=== PATIENT | male | born 1950 | race Caucasian/White ===

== ENCOUNTER 2025-01-17 08:17 | Outpatient (RCR) | payer MEDICARE, SELFPAY ==
--- NOTE | 2025-01-26 15:20 | CTCCONSULT_ITS ---
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 Patient on EGD was found to have about 5 cm tumor in the stomach. Biopsy confirmed gastrointestinal stromal tumor. Patient have already appointment with Dr. Romero for resection. Patient is scheduled to see him patient is asymptomatic CT scan 01/10/2025 OTHER MEDICAL HISTORY/CONDITIONS: HYPERTENSION GI STROMAL TUMOR DIABETES MELLITUS TESTOSTERONE DEFICIENCY DIABETIC POLYNEUROPATHY HYPERLIPIDEMIA BPH THROMBOCYTOPENIA EGD 09/12/24 LEFT EYE SURGERY 01/16 APPENDECOMTY 1956 TONSILLECTOMY AGE 14 SPINAL SURGERY 2000 FAMILY HISTORY: Father:?DENIES Mother: MOTHER COLON CANCER , UNCLE COLON CANCER Sibling:?SISTER?LEUKEMIA Children:?DENIES Cancer History:?STROMAL TUMOR DX 08/2024 SOCIAL HISTORY: Occupational?History:?RETIRED Education?Level:?Completed High School Marital?Status:? Tobacco?Use:?DENIES ETOH?Use:?DENIES Drug?Note:?DENIES Social History Note:?LIVES WITH DAUGHTER AND HER FAMILY MEDICATIONS: 1. amitriptyline - 10 mg 1 tab In the evening 2. Diphenoxylate w/Atropine - 2.5-0.025 mg 1 tab Twice a Day 3. Gemtesa - 75 mg 1 tab Daily 4. Gleevec - 400 mg 1 tab Daily 5. Jardiance - 25 mg 1 tab Daily 6. losartan-hydrochlorothiazide - 50-12.5 mg 1 tab Daily 7. metFORMIN - 1,000 mg 1 tab Daily 8. multivitamin - 1 Capsule Daily 9. simvastatin - 10 mg 1 tab Daily Medications Last Reconciled by Domonique Laureano RN on 01/17/2025 ALLERGIES: Penicillin V; KETOROLAC TROMETHAMINE; Adhesive REVIEW OF SYSTEMS: A complete 14-point review of systems was performed and is negative except as noted in interval history. PHYSICAL EXAMINATION: VITAL SIGNS: Temperature?98.1, B/P?116/73, Height?69?inches, Oxygen?Saturation?97% Weight?175?lbs PAIN: 0 - No pain ECOG Performance Status: 0 - Asymptomatic and fully active GENERAL APPEARANCE: Appears well, in no apparent distress, appropriately interactive. HEENT: Normocephalic, no temporal wasting, normal conjunctiva, no scleral icterus, normal hearing, lips without lesions, neck normal range of motion. CARDIOVASCULAR: Not assessed. PULMONARY: Normal respiratory effort, no respiratory distress or use of accessory muscles, speaking in full sentences, no tachypnea. EXTREMITIES: No pedal edema or cyanosis. SKIN: Normal skin appearance. NEUROLOGIC: Alert and oriented x4. PSHYCHIATRIC: Appropriate affect, mood normal, behavior normal, intact thought and speech. LABORATORY DATA: I have personally reviewed and interpreted each of the patient?s relevant lab tests, abnormal findings are below: Date ASSESSMENT/PLAN: GIST START ON GLEEVAC Patient have multiple lesions Hepatitis panel RETURN TO CLINIC: 4 weeks BILLING AND COMPLIANCE: I reviewed external records from providers outside my specialty as summarized above. I spent a total of 50 minutes on this patient?s care on the day of their visit excluding time spent related to any billed procedures. This time includes time spent with the patient as well as time spent documenting in the medical record, reviewing patients records and tests, obtaining history, placing orders, communicating with other healthcare professionals, counseling the patient, family or caregiver, and/or care coordination for the diagnoses above. Electronically Signed by: Zane Hawkins MD T: 3:17 PM CC: PCP: Daniel Cabrera Referring: Daniel Cabrera This document was completed utilizing speech recognition software. Grammatical errors, random word insertions, pronoun errors, and incomplete sentences are an occasional consequence of this system due to software limitations, ambient noise, and hardware issues. Any formal questions or concerns about the content, text or information contained within the body of this dictation should be directly addressed to the provider for clarification.
== END 2025-01-23 23:59 | disposition home or self-care (01) ==
LOC: SCTC 08:17
PROVIDERS: PCP Student in an Organized Health Care Education/Training Program; Referring Provider Student in an Organized Health Care Education/Training Program; Visit Provider Internal Medicine Hematology & Oncology
DX: C49.A2 Gastrointestinal stromal tumor of stomach (principal)
CPT/HCPCS: 99213; G0463

== ENCOUNTER 2025-03-02 10:43 | Outpatient (RCR) | payer MEDICARE, SELFPAY ==
--- NOTE | 2025-03-05 21:53 | CTCFLWUP_ITS ---
Patient: ABELARDO MALONE : 1950 Page 4 of 6 FOLLOW UP NOTE DATE OF SERVICE: 03/02/2025 NAME: ABELARDO MALONE ACCOUNT: [id number] : 1950 AGE: 74 INTERVAL HISTORY: Subjective: Chief Complaint Follow-up for GIST tumor, evaluation of liver and pancreatic lesions, monitoring Gleevec treatment History of Present Illness Mr. Abelardo Malone presents for follow-up of his GIST tumor, a 5 cm tumor in the stomach, with recently discovered lesions in the liver and pancreas. He has been taking Gleevec for 30 days as prescribed. The patient reports tolerating the medication well, with no significant side effects such as bleeding. However, he does mention that he bruises easily, which he attributes to the medication. There have been no other concerning symptoms reported. Mr. Malone is scheduled for an MRI scan on the of this month, as ordered by Dr. Shane. This scan was initially intended to be done before starting treatment but was delayed. The patient understands that it may be too early to see significant improvements from the Gleevec treatment at this stage. The patient's treatment plan includes continuing Gleevec and monitoring for any changes or side effects. He has been advised to report any unusual symptoms promptly. The goal of treatment is to potentially shrink the liver lesions and eventually consider removal of the stomach tumor if the liver lesions resolve. Medical History - GIST tumor, 5 cm in stomach - Lesions in liver - Lesion in pancreas Medications and Supplements - Gleevec - Taking for 30 days - No bleeding or significant bruising reported - Patient bruises easily, attributed to medication Social History - Hobbies: Listens to music while waiting for appointments Review of Systems Skin: Positive for easy bruising. Hematological/Lymphatic: Negative for bleeding. 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 Patient on EGD was found to have about 5 cm tumor in the stomach. Biopsy confirmed gastrointestinal stromal tumor. Patient have already appointment with Dr. Romero for resection. Patient is scheduled to see him patient is asymptomatic CT scan 01/10/2025 OTHER MEDICAL HISTORY/CONDITIONS: HYPERTENSION GI STROMAL TUMOR DIABETES MELLITUS TESTOSTERONE DEFICIENCY DIABETIC POLYNEUROPATHY HYPERLIPIDEMIA BPH THROMBOCYTOPENIA EGD 09/12/24 LEFT EYE SURGERY 01/16 APPENDECOMTY 1956 TONSILLECTOMY AGE 14 SPINAL SURGERY 2000 FAMILY HISTORY: Father:?DENIES Mother: MOTHER COLON CANCER , UNCLE COLON CANCER Sibling:?SISTER?LEUKEMIA Children:?DENIES Cancer History:?STROMAL TUMOR DX 08/2024 SOCIAL HISTORY: Occupational?History:?RETIRED Education?Level:?Completed High School Marital?Status:? Tobacco?Use:?DENIES ETOH?Use:?DENIES Drug?Note:?DENIES Social History Note:?LIVES WITH DAUGHTER AND HER FAMILY MEDICATIONS: 1. amitriptyline - 10 mg 1 tab In the evening 2. Diphenoxylate w/Atropine - 2.5-0.025 mg 1 tab Twice a Day 3. Gemtesa - 75 mg 1 tab Daily 4. Gleevec - 400 mg 1 tab Daily 5. Jardiance - 25 mg 1 tab Daily 6. losartan-hydrochlorothiazide - 50-12.5 mg 1 tab Daily 7. metFORMIN - 1,000 mg 1 tab Daily 8. multivitamin - 1 Capsule Daily 9. simvastatin - 10 mg 1 tab Daily Medications Last Reconciled by Josefa Thomas MD on 03/02/2025 ALLERGIES: Penicillin V; KETOROLAC TROMETHAMINE; Adhesive REVIEW OF SYSTEMS: A complete 14-point review of systems was performed and is negative except as noted in interval history. PHYSICAL EXAMINATION: VITAL SIGNS: Temperature?96.7, B/P?131/83, Oxygen?Saturation?95% Weight?180?lbs PAIN: 0 - No pain ECOG Performance Status: 0 - Asymptomatic and fully active GENERAL APPEARANCE: Appears well, in no apparent distress, appropriately interactive. HEENT: Normocephalic, no temporal wasting, normal conjunctiva, no scleral icterus, normal hearing, lips without lesions, neck normal range of motion. CARDIOVASCULAR: Not assessed. PULMONARY: Normal respiratory effort, no respiratory distress or use of accessory muscles, speaking in full sentences, no tachypnea. EXTREMITIES: No pedal edema or cyanosis. SKIN: Normal skin appearance. NEUROLOGIC: Alert and oriented x4. PSHYCHIATRIC: Appropriate affect, mood normal, behavior normal, intact thought and speech. LABORATORY DATA: I have personally reviewed and interpreted each of the patient?s relevant lab tests, abnormal findings are below: Date ASSESSMENT/PLAN: GIST Assessment and Plan: Kira Tan, a patient with a 5 cm GIST tumor in the stomach and lesions in the liver and pancreas, is being followed up after starting Gleevec treatment 30 days ago. 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 Treatment with Gleevec was initiated 30 days ago. The patient is tolerating the medication well without significant side effects, though easy bruising is noted. An MRI is scheduled for March 09, but it may be too early to show significant improvement. The clinician emphasizes that it typically takes 3-4 months for Gleevec to show effectiveness. Plan: - Continue Gleevec at current dose (patient to continue taking as prescribed) - Monitor for side effects, particularly bleeding and bruising - Proceed with scheduled MRI on March 09 - Manage expectations regarding potential lack of improvement at this early stage - Follow-up appointment in 2 months - Reassess treatment efficacy and consider surgical options for stomach tumor if liver lesions resolve RETURN TO CLINIC: BILLING AND COMPLIANCE: I reviewed external records from providers outside my specialty as summarized above. I spent a total of 50 minutes on this patient?s care on the day of their visit excluding time spent related to any billed procedures. This time includes time spent with the patient as well as time spent documenting in the medical record, reviewing patients records and tests, obtaining history, placing orders, communicating with other healthcare professionals, counseling the patient, family or caregiver, and/or care coordination for the diagnoses above. Electronically Signed by: Zane Hawkins MD T: 9:51 PM CC: PCP: Zane Hawkins Referring: Zane Hawkins This document was completed utilizing speech recognition software. Grammatical errors, random word insertions, pronoun errors, and incomplete sentences are an occasional consequence of this system due to software limitations, ambient noise, and hardware issues. Any formal questions or concerns about the content, text or information contained within the body of this dictation should be directly addressed to the provider for clarification.
== END 2025-03-25 23:59 | disposition home or self-care (01) ==
LOC: SCTC 10:43
PROVIDERS: PCP Student in an Organized Health Care Education/Training Program; Referring Provider Internal Medicine Hematology & Oncology; Visit Provider Internal Medicine Hematology & Oncology
DX: C49.A2 Gastrointestinal stromal tumor of stomach (principal); C78.7 Secondary malignant neoplasm of liver and intrahepatic bile duct; C78.89 Secondary malignant neoplasm of other digestive organs
CPT/HCPCS: 99212; G0463

== ENCOUNTER 2025-05-02 13:34 | Outpatient (RCR) | payer MEDICARE, SELFPAY ==
--- NOTE | 2025-05-03 06:40 | CTCFLWUP_ITS ---
Patient: ABELARDO MALONE : 1950 Page 4 of 6 FOLLOW UP NOTE DATE OF SERVICE: 05/02/2025 NAME: ABELARDO MALONE ACCOUNT: [id number] : 1950 AGE: 74 INTERVAL HISTORY: PATIENT had his MRI liver which shows that patient likely have cystic lesions as mets and no cancerous lesions . Patient is scheculed to see Dr Russ Chief Complaint Follow-up for GIST tumor, evaluation of liver and pancreatic lesions, monitoring Gleevec treatment History of Present Illness Mr. Abelardo Malone presents for follow-up of his GIST tumor, a 5 cm tumor in the stomach, with recently discovered lesions in the liver and pancreas. He has been taking Gleevec for 30 days as prescribed. The patient reports tolerating the medication well, with no significant side effects such as bleeding. However, he does mention that he bruises easily, which he attributes to the medication. There have been no other concerning symptoms reported. Mr. Malone had MRI scan on the 09 of may and I saw report after he shared it and shows no cancerous lesions . This scan was initially intended to be done before starting treatment but was delayed. The patient understands that it may be too early to see significant improvements from the Gleevec treatment at this stage. The patient's treatment plan includes continuing Gleevec and monitoring for any changes or side effects. He has been advised to report any unusual symptoms promptly. The goal of treatment is to potentially shrink the liver lesions and eventually consider removal of the stomach tumor if the liver lesions resolve. Medical History - GIST tumor, 5 cm in stomach - Lesions in liver - Lesion in pancreas Medications and Supplements - Gleevec - Taking for 30 days - No bleeding or significant bruising reported - Patient bruises easily, attributed to medication Social History - Hobbies: Listens to music while waiting for appointments Review of Systems Skin: Positive for easy bruising. Hematological/Lymphatic: Negative for bleeding. 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 Patient on EGD was found to have about 5 cm tumor in the stomach. Biopsy confirmed gastrointestinal stromal tumor. Patient have already appointment with Dr. Romero for resection. Patient is scheduled to see him patient is asymptomatic CT scan 01/10/2025 OTHER MEDICAL HISTORY/CONDITIONS: HYPERTENSION GI STROMAL TUMOR DIABETES MELLITUS TESTOSTERONE DEFICIENCY DIABETIC POLYNEUROPATHY HYPERLIPIDEMIA BPH THROMBOCYTOPENIA EGD 09/12/24 LEFT EYE SURGERY 01/16 APPENDECOMTY 1956 TONSILLECTOMY AGE 14 SPINAL SURGERY 2000 FAMILY HISTORY: Father:?DENIES Mother: MOTHER COLON CANCER , UNCLE COLON CANCER Sibling:?SISTER?LEUKEMIA Children:?DENIES Cancer History:?STROMAL TUMOR DX 08/2024 SOCIAL HISTORY: Occupational?History:?RETIRED Education?Level:?Completed High School Marital?Status:? Tobacco?Use:?DENIES ETOH?Use:?DENIES Drug?Note:?DENIES Social History Note:?LIVES WITH DAUGHTER AND HER FAMILY MEDICATIONS: 1. amitriptyline - 10 mg 1 tab In the evening 2. Diphenoxylate w/Atropine - 2.5-0.025 mg 1 tab Twice a Day 3. Gemtesa - 75 mg 1 tab Daily 4. Gleevec - 400 mg 1 tab Daily 5. Jardiance - 25 mg 1 tab Daily 6. losartan-hydrochlorothiazide - 50-12.5 mg 1 tab Daily 7. metFORMIN - 1,000 mg 1 tab Daily 8. multivitamin - 1 Capsule Daily 9. simvastatin - 10 mg 1 tab Daily Medications Last Reconciled by Josefa Thomas MD on 05/02/2025 ALLERGIES: Penicillin V; KETOROLAC TROMETHAMINE; Adhesive REVIEW OF SYSTEMS: A complete 14-point review of systems was performed and is negative except as noted in interval history. PHYSICAL EXAMINATION: VITAL SIGNS: Temperature?98.5, B/P?131/82, Oxygen?Saturation?99% Weight?184?lbs ECOG Performance Status: 0 - Asymptomatic and fully active GENERAL APPEARANCE: Appears well, in no apparent distress, appropriately interactive. HEENT: Normocephalic, no temporal wasting, normal conjunctiva, no scleral icterus, normal hearing, lips without lesions, neck normal range of motion. CARDIOVASCULAR: Not assessed. PULMONARY: Normal respiratory effort, no respiratory distress or use of accessory muscles, speaking in full sentences, no tachypnea. EXTREMITIES: No pedal edema or cyanosis. SKIN: Normal skin appearance. NEUROLOGIC: Alert and oriented x4. PSHYCHIATRIC: Appropriate affect, mood normal, behavior normal, intact thought and speech. LABORATORY DATA: I have personally reviewed and interpreted each of the patient?s relevant lab tests, abnormal findings are below: Date ASSESSMENT/PLAN: GIST Assessment and Plan: Kira Tan, a patient with a 5 cm GIST tumor in the stomach and lesions in the liver and pancreas, is being followed up after starting Gleevec treatment 30 days ago. 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 Treatment with Gleevec was initiated 30 days ago. The patient is tolerating the medication well without significant side effects, Plan: - Continue Gleevec at current dose (patient to continue taking as prescribed) - Monitor for side effects, particularly bleeding and bruising - follow up with me after Dr Russ s visit RETURN TO CLINIC: I reviewed the diagnosis, prognosis, and recommended treatment/procedure options with the patient (and/or their legal inside outside sales representative), including the potential benefits, risks, side effects and alternative therapies. We also discussed the option of no treatment and the possibility of clinical trial participation, if applicable. All questions were addressed, and they demonstrated understanding. They provided informed consent to proceed with the proposed plan of care. BILLING AND COMPLIANCE: I reviewed external records from providers outside my specialty as summarized above. I spent a total of 50 minutes on this patient?s care on the day of their visit excluding time spent related to any billed procedures. This time includes time spent with the patient as well as time spent documenting in the medical record, reviewing patients records and tests, obtaining history, placing orders, communicating with other healthcare professionals, counseling the patient, family or caregiver, and/or care coordination for the diagnoses above. Electronically Signed by: Zane Hawkins MD T: 6:38 AM CC: PCP: Daniel Cabrera Referring: Daniel Cbarera This document was completed utilizing speech recognition software. Grammatical errors, random word insertions, pronoun errors, and incomplete sentences are an occasional consequence of this system due to software limitations, ambient noise, and hardware issues. Any formal questions or concerns about the content, text or information contained within the body of this dictation should be directly addressed to the provider for clarification.
== END 2025-05-25 23:59 | disposition home or self-care (01) ==
LOC: SCTC 13:34
PROVIDERS: PCP Student in an Organized Health Care Education/Training Program; Referring Provider Student in an Organized Health Care Education/Training Program; Visit Provider Internal Medicine Hematology & Oncology
DX: C49.A2 Gastrointestinal stromal tumor of stomach (principal); C78.7 Secondary malignant neoplasm of liver and intrahepatic bile duct; C78.89 Secondary malignant neoplasm of other digestive organs
CPT/HCPCS: 99212; G0463